=== PATIENT | male | born 1930 | race Caucasian/White ===

== ENCOUNTER 2021-09-16 08:53 | Inpatient (IN) | payer MEDICARE, OTHER ==
[~2021-09-16] VITALS: Ht 162.6 cm; Wt 72.6 kg
[2021-09-16 09:04] VITALS: BP 141/80
[2021-09-16] MEDS ORDERED: LEVO-T50 MCG PO (09:11)
[2021-09-16] MEDS ORDERED: PROSCAR 5MG TABL5 M1 PO (09:11)
--- NOTE | 2021-09-16 09:32 | EKG ---
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: : 1930 Requested By: Norm Ivey Order Number: [id number] MD: Riky Bianchi Measurements Intervals [place] Rate: 99 P: [place]: QRS: -26 QRSD: 101 T: 134 QT: 364 QTc: 468 Interpretive Statements Atrial fibrillation Ventricular premature complex Abnormal R-wave progression, 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
[2021-09-16 09:46] LABS: ABSOLUTE EOSINOPHILS 0.1 thou/uL (0.0-0.7); ABSOLUTE LYMPHOCYTES 1.1 thou/uL (0.8-5.3); ABSOLUTE MONOCYTES 1.3 thou/uL (0.0-1.2); ABSOLUTE NEUTROPHILS 7.8 thou/uL (1.6-8.1); BASOPHILS 0.3 %; HEMATOCRIT 39.1 % (42.0-52.0); HEMOGLOBIN 13.1 gm/dL (14.0-18.0); LYMPHOCYTES 10.8 %; MCH 30.6 pg (26.0-34.0); MCHC 33.6 g/dL (28.0-37.0); MONOCYTES 12.6 %; MPV 7.7 fl. (7.2-11.1); NUCLEATED RBCS 0 /100WBC; PLATELET COUNT* 339 thou/uL (150-400); POLYS 75.3 %; RDW-CV 14.2 % (10.5-14.5); WBC 10.3 thou/uL (4.0-11.0)
[2021-09-16 09:59] LABS: CALCIUM 8.8 mg/dL (8.5-10.1); CREATININE 1.1 mg/dL (0.6-1.3); POTASSIUM 3.6 mmol/L (3.5-5.1)
[2021-09-16 10:10] LABS: ALBUMIN 2.8 g/dL (3.4-5.0); TOTAL BILIRUBIN 0.7 mg/dL (<0.1-1.0); TOTAL PROTEIN 6.9 g/dL (6.4-8.2)
[2021-09-16 12:53] LABS: CHOLESTEROL 151 mg/dL (<200); HDL CHOLESTEROL 56 mg/dL (>40); LDL CHOLESTEROL 84 mg/dL (<100); TC:HDL 2.7 Ratio (Not establshd); TRIGLYCERIDE 56 mg/dL (<150); VLDL 11 mg/dL (<40)
[2021-09-16 12:57] LABS: SERUM ASSESSMENT Moderate Lipemia
--- NOTE | 2021-09-16 14:06 | 2DMMODE ---
[place] [address] 2 D/M-MODE ECHOCARDIOGRAM Name: ALESIA PADGETT Room: [place] [address] ADM IN [place].Alisha.#: [id number] Admission: 09/16/21 Attend Phys: Moraima Dunn Discharge: Date of : [birth year] Date of Service: 09/16/21 1405 Report #: [id number] THIS REPORT FOR: cc: ARTURO SIMPSON MD, CHADWICK MD Holkins,Riky Rey MD [facility] ~ APPROVED REPORT Study performed: 09/16/2021 12:34:49 EXAM: Comprehensive 2D, Doppler, and color-flow Echocardiogram Patient Location: In-Patient Room #: er Status: routine BSA: 1.82 HR: 80 bpm BP: 133/85 mmHg Rhythm: NSR Other Information Study Quality: Good Indications Dyspnea 2D Dimensions IVSd: 10.27 (7-11mm) LVOT Diam: 20.43 (18-24mm) LVDd: 46.26 mm PWd: 9.52 (7-11mm) LVDs: 34.76 (25-40mm) Aortic Root: 32.47 mm Volumes Left Atrial Volume (Systole) LA ESV Index: 45.90 mL/m2 Aortic Valve AoV Peak Mic.: 1.60 m/s AO Peak Gr.: 10.25 mmHg LVOT Max P.44 mmHg AO Mean Gr.: 6.13 mmHg LVOT Mean P.73 mmHg LVOT Max V: 0.93 m/s AO V2 VTI: 27.90 cm LVOT Mean V: 0.61 m/s WILFR[place]O (VTI): 1.84 cm2 LVOT V1 VTI: 15.67 cm AI [place]: 1.79 m/s2 [place] [address] 2 D/M-MODE ECHOCARDIOGRAM Name: ALESIA PADGETT Room: [place] [address] ADM IN .R.#: [id number] Admission: 09/16/21 Attend Phys: Moraima Dunn Discharge: Date of : [birth year] Date of Service: 09/16/21 1405 Report #: [id number] AI PHT: 603.50 ms TDI Lateral E' Mic.: 0.13 m/s Pulmonary Valve PV Peak Mic.: 0.80 m/s PV Peak Gr.: 2.56 mmHg Left Ventricle The left ventricle is normal size. There is normal LV segmental wall motion. There is normal left ventricular wall thickness. Left ventricular systolic function is borderline. LVEF is 50-55%. This study is not technically sufficient to allow evaluation of the LV diastolic function due to atrial fibrillation. Right Ventricle Right ventricle is borderline dilated. The right ventricular systolic function is normal. Atria Left atrium is moderately dilated. Right atrium is mildly dilated. Aortic Valve Moderate aortic valve sclerosis. Mild aortic regurgitation. Mild aortic stenosis. Mitral Valve Moderate mitral annular calcification. Mild mitral regurgitation. No evidence of mitral valve stenosis. Tricuspid Valve The tricuspid valve is normal in structure. Unable to assess PA pressure. Trace tricuspid regurgitation. Pulmonic Valve The pulmonary valve is normal in structure. Trace pulmonic regurgitation. Great Vessels The aortic root is normal in size. IVC is normal in size and collapses >50% with inspiration. Pericardium There [place] [address] 2 D/M-MODE ECHOCARDIOGRAM Name: ALESIA PADGETT Room: [place] [address] ADM IN R.#: [id number] Admission: 09/16/21 Attend Phys: Moraima Dunn Discharge: Date of : [birth year] Date of Service: 09/16/21 1405 Report #: [id number] <Conclusion> The left ventricle is normal size. There is normal left ventricular wall thickness. Left ventricular systolic function is borderline. LVEF is 50-55%. This study is not technically sufficient to allow evaluation of the LV diastolic function due to atrial fibrillation. Right ventricle is borderline dilated. Left atrium is moderately dilated. Right atrium is mildly dilated. Moderate aortic valve sclerosis. Mild aortic regurgitation. Mild aortic stenosis. Moderate mitral annular calcification. Mild mitral regurgitation. No evidence of mitral valve stenosis. The tricuspid valve is normal in structure. IVC is normal in size and collapses >50% with inspiration. There is no pericardial effusion. There is normal LV segmental wall motion. <ELECTRONICALLY SIGNED> By: Riky Bianchi MD, [facility] 09/16/21 1405 1405 140 Riky Bianchi MD, FACC /INF
[2021-09-16 15:59] VITALS: BP 140/66
[2021-09-16 20:00] VITALS: BP 126/58
[2021-09-17 00:05] VITALS: BP 137/68
[2021-09-17 04:00] VITALS: BP 140/74
[2021-09-17 05:10] LABS: CALCIUM 8.3 mg/dL (8.5-10.1); CREATININE 1.1 mg/dL (0.6-1.3); POTASSIUM 3.5 mmol/L (3.5-5.1)
[2021-09-17 08:00] VITALS: BP 145/63
[2021-09-17 12:35] VITALS: BP 138/52
[2021-09-17 16:15] VITALS: BP 143/61
[2021-09-17 20:15] VITALS: BP 116/53
[2021-09-18 00:19] VITALS: BP 112/65
[2021-09-18 04:00] VITALS: BP 140/62
[2021-09-18 08:00] VITALS: BP 134/52
--- NOTE | 2021-09-18 08:15 | CON ---
[address] [address] CONSULTATION Name: ALESIA PADGETT Room: [address] ADM IN M.R.#: [id number] Admission: 09/16/21 Attend Phys: [place] Knapp Discharge: Date of : [birth year] Report #: [id number] THIS REPORT FOR: cc: ARTURO SIMPSON MD, CHADWICK MD Biggs, F. Douglas MD [facility] ~ DATE OF CONSULTATION: 09/17/2021 CARDIOLOGY FOLLOWUP VISIT NOTE HISTORY OF PRESENT ILLNESS: This morning the patient feels well and has really only complaint in his left leg. He says he has had left leg pain that keeps him from moving his left leg very much for almost a year. Apparently that has not been investigated. At least he tells me it has not been investigated. He does see a neurologist named, Dr. Crenshaw for his back issues. Today, he is in normal sinus rhythm on the monitor. He is not having any chest pain or shortness of breath or other cardiac complaints. He does not have orthopnea or PND. He does not have any edema. PHYSICAL EXAMINATION: VITAL SIGNS: His pulse is 62, blood pressure 140/70, respirations 18, temperature 36.7. HEENT: His head is atraumatic. NECK: There is no jugular venous distention or hepatojugular reflux. LUNGS: Clear to auscultation and percussion, but there are decreased breath sounds in both bases. HEART: Revealed normal first and second heart sound. The aortic second sound is easily heard. There is a 1-2/6 systolic ejection murmur heard in the aortic area. The rhythm is regular. The rate is approximately 62. ABDOMEN: Soft, flat, nontender. There are no palpable masses, no organomegaly. There is no hepatojugular reflux. EXTREMITIES: Reveal no cyanosis, clubbing or edema. His left leg is not swollen or tender. There is no redness, it is a very normal appearing left leg. It does hurt whenever I try to move it, however. He says it hurts all the way up from his lower leg to his thigh. IMPRESSION: 1. Atrial fibrillation, now in normal sinus rhythm. 2. Mild aortic stenosis. 3. Congestive heart failure that is cleared. 4. Probable diastolic dysfunction. RECOMMENDATIONS: I would stop his metoprolol and [place] [address] CONSULTATION Name: ALESIA PADGETT Room: [address] IN [facility]#: [id number] Admission: 09/16/21 Attend Phys: [place] Kanpp Discharge: Date of : [birth year] Report #: [id number] should have his potassium stopped after today's dose. I would recheck an EKG and I would start him on sotalol. <ELECTRONICALLY SIGNED> By: Radha Villalba MD, [facility] 09/18/21 0815 0722 0814F. Johan Villalba MD, [facility] /nt
[2021-09-18 12:14] VITALS: BP 91/35
[2021-09-18 15:53] VITALS: BP 119/57
[2021-09-18 20:43] VITALS: BP 114/51
[2021-09-19] VITALS: BP 119/49
[2021-09-19 04:00] VITALS: BP 120/78
[2021-09-19 08:00] VITALS: BP 124/59
--- NOTE | 2021-09-19 10:24 | EKG ---
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 : 1930 Requested By: Radha Villalba Order Number: [id number] Reading MD: Derrick Escudero Measurements Intervals [place] Rate: 64 P: 20 FL: 174 QRS: -22 QRSD: 91 T: -28 QT: 516 QTc: 533 Interpretive Statements Sinus rhythm Atrial premature complex Probable LVH with secondary repol abnrm Inferior infarct, old Prolonged QT interval Compared to ECG 09/16/2021 09:08:48 Atrial premature complex(es) now present Prolonged QT interval now present Atrial fibrillation no longer present Ventricular premature complex(es) no longer present Myocardial infarct finding still present Electronically Signed On 09-19-2021 10:23:49 ADMINISTRATIVE SECRETARY by Derrick Escudero [email or web address] <ELECTRONICALLY SIGNED> By: Derrick Escudero MD, [facility] 09/19/21 1023 1 1 Derrick Escudero MD, [facility] /EPI
--- NOTE | 2021-09-19 10:25 | EKG ---
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 : 1930 Requested By: Radha Villalba Order Number: [id number] Reading MD: Derrick Escudero Measurements Intervals [place] Rate: 53 P: 0 DC: 50 QRS: -20 QRSD: 100 T: 126 QT: 459 QTc: 431 Interpretive Statements Sinus rhythm with pac's Short DC interval LVH with secondary repolarization abnormality Compared to ECG 09/17/2021 08:32:39 Prolonged QT interval no longer present Electronically Signed On 09-19-2021 10:25:09 SOCIAL WORK NURSE by Derrick Escudero [email or web address] <ELECTRONICALLY SIGNED> By: Derrick Escudero MD, [facility] 09/19/21 1025 4 4 Derrick Escudero MD, [facility] /EPI
[2021-09-19 12:00] VITALS: BP 100/34
[2021-09-19] MEDS ORDERED: TRAMADOL 50 MG50 MG PO (12:19)
[2021-09-19] MEDS ORDERED: CEFDINIR300 MG PO (12:19)
[2021-09-19] MEDS ORDERED: VITAMIN D325 MC2 PO (12:19)
[2021-09-19] MEDS ORDERED: MEGESTROL400 MG/11 PO (12:19)
[2021-09-19] MEDS ORDERED: GABAPENTIN 100100 MG PO (12:19)
[2021-09-19] MEDS ORDERED: SORINE 80 MG TA80 M1 PO (12:19)
[2021-09-19] MEDS ORDERED: ELIQUIS5 MG PO (12:19)
[2021-09-19 16:00] VITALS: BP 102/47
--- NOTE | 2021-09-19 18:17 | EKG ---
[place] [address] ELECTROCARDIOGRAM REPORT Name: ALESIA PADGETT Room: [address] ADM IN M.R.#: [id number] Admission: 09/16/21 Attend Phys: Moraima Dunn Discharge: Date of : [birth year] Date of Service: 09/19/2123 Report #: [id number] THIS REPORT FOR: //name// [facility] Test Date: 2021-09-19 Test Time: 09:23:44 Pat Name: ALESIA PADGETT Department: Room: [address] Gender: M Fish Rod Maker: XAVI : 1930 Requested By: Radha Villalba Order Number: [id number] Reading MD: Derrick Escudero Measurements Intervals [place] Rate: 66 P: 20 SD: 175 QRS: -25 QRSD: 93 T: 133 QT: 405 QTc: 425 Interpretive Statements Sinus rhythm LVH with secondary repolarization abnormality Inferior infarct, old Compared to ECG 09/18/2021 08:15:07 pac's no longer noted Short SD interval no longer present Electronically Signed On 09-19-2021 18:16:59 BASKET TURNER by Derrick Escudero [email or web address] <ELECTRONICALLY SIGNED> By: Derrick Escudero MD, [facility] 09/19/21 1816 2 2 Derrick Escudero MD, FAC /EPI
[2021-09-19 21:19] VITALS: BP 129/55
[2021-09-20 02:08] VITALS: BP 125/46
[2021-09-20 05:34] VITALS: BP 120/45
--- NOTE | 2021-09-20 07:59 | CON ---
[address] [address] CONSULTATION Name: ALESIA PADGETT Room: [address] ADM IN M.R.#: [id number] Admission: 09/16/21 Attend Phys: [place] Knapp Discharge: Date of : [birth year] Report #: [id number] THIS REPORT FOR: cc: ARTURO SIMPSON MD, CHADWICK MD Biggs, F. Douglas MD [facility] ~ DATE OF CONSULTATION: 09/18/2021 CARDIOLOGY HOSPITAL FOLLOWUP VISIT HISTORY OF PRESENT ILLNESS: The patient feels well today. He said he slept very well last night. He says he feels better this morning than he has felt in some time. He says the best night's sleep, he has had in some time. He does not have any shortness of breath, dyspnea on exertion, chest pain, angina. He has not had any syncope or near syncope. He looks well, feels well and seems to be doing well. PHYSICAL EXAMINATION: VITAL SIGNS: Temperature 36.7, pulse 51, respirations 20, blood pressure 140/62. NECK: There was no jugular venous distention or hepatojugular reflux. LUNGS: Clear to auscultation and percussion. HEART: Revealed normal first and second heart sound. There is soft S4. There is no S3. There was 1-2/6 systolic ejection murmur heard in the aortic area. The aortic second sound was easily heard. There were no other murmurs, rubs, thrills, heaves or gallops. Rhythm was regular and the rate was approximately 60 when I examined him. ABDOMEN: Soft, flat, nontender, no palpable masses, no organomegaly. EXTREMITIES: Reveal no cyanosis, clubbing or edema. LABORATORY DATA: His EKG from yesterday showed normal sinus rhythm. There is 1 atrial premature beat. There is probable LVH for secondary repolarization abnormality. There is a possible old inferior infarct, although there was a clear cut R waves in 2 and a very small R-wave in 3. I suspect he has not had an inferior infarct in the past. The QT interval was prolonged at 516 with a QTc of 533. This EKG was before he got any sotalol. His EKG today shows sinus bradycardia, heart rate was 55. There was left ventricular hypertrophy. Again, a possible old inferior infarct. The QT was measured by the EKG reader as 451 with a QTc of 432. IMPRESSION: 1. Atrial fibrillation, now in normal sinus rhythm. 2. Aortic stenosis that is mild. 3. Mild congestive heart failure, likely diastolic heart [place] [address] CONSULTATION Name: ALESIA PADGETT Room: [address] IN M.R.#: [id number] Admission: 09/16/21 Attend Phys: [place] Knapp Discharge: Date of : [birth year] Report #: [id number] 4. Coronary artery disease. 5. Status post coronary artery bypass graft surgery. RECOMMENDATIONS: I am going to reduce his sotalol to 40 mg b.i.d. given his age. Fortunately, his creatinine clearance is reasonable. His BUN and creatinine are both within normal limits. I suspect given his age; however, he might become toxic on the 80 mg twice a day. <ELECTRONICALLY SIGNED> By: Radha Villalba MD, FACC 09/20/21 0759 0728 0832F. Johan Villalba MD, FACC /nt
[2021-09-20 08:00] VITALS: BP 104/47
[2021-09-20 12:00] VITALS: BP 104/50
[2021-09-20 16:00] VITALS: BP 110/48
[2021-09-20 18:23] VITALS: BP 110/48
--- NOTE | 2021-09-21 10:17 | EKG ---
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 : 1930 Requested By: Radha Villalba Order Number: [id number] Reading MD: Derrick Escudero Measurements Intervals [place] Rate: 60 P: 21 ID: 180 QRS: -19 QRSD: 102 T: 143 QT: 426 QTc: 426 Interpretive Statements Sinus rhythm Abnormal R-wave progression, 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
== END 2021-09-20 18:56 | disposition home or self-care (01) | DRG 602 ==
LOC: M.ERS 08:53 → M.TBA-ER 10:59 → M.2W 10:59
PROVIDERS: Family Medicine; Registered Nurse; ADMIT Internal Medicine; ATTEND Internal Medicine
DX: L03.116 Cellulitis of left lower limb (principal); I50.31 Acute diastolic (congestive) heart failure; E43 Unspecified severe protein-calorie malnutrition; Z68.27 Body mass index [BMI] 27.0-27.9, adult; I48.91 Unspecified atrial fibrillation; Z79.01 Long term (current) use of anticoagulants; N40.0 Benign prostatic hyperplasia without lower urinary tract symptoms; E03.9 Hypothyroidism, unspecified; I25.10 Atherosclerotic heart disease of native coronary artery without angina pectoris; M54.10 Radiculopathy, site unspecified; I35.0 Nonrheumatic aortic (valve) stenosis; Z20.822 Contact with and (suspected) exposure to COVID-19; M54.30 Sciatica, unspecified side; Z95.1 Presence of aortocoronary bypass graft

== ENCOUNTER 2021-09-20 17:48 | Inpatient (IN) | payer MEDICARE, OTHER ==
[~2021-09-20] VITALS: Ht 170.2 cm; Wt 70.1 kg
[~2021-09-20 17:48] MED LIST: CEFDINIR300 MG PO; ELIQUIS5 MG PO; GABAPENTIN 100100 MG PO; LEVO-T50 MCG PO; MEGESTROL400 MG/11 PO; PROSCAR 5MG TABL5 M1 PO; SORINE 80 MG TA80 M1 PO; TRAMADOL 50 MG50 MG PO; VITAMIN D325 MC2 PO
[2021-09-21 04:35] LABS: HEMATOCRIT 36.4 % (42.0-52.0); HEMOGLOBIN 12.1 gm/dL (14.0-18.0); MCH 30.5 pg (26.0-34.0); MCHC 33.2 g/dL (28.0-37.0); MCV 91.7 fL (80.0-100.0); MPV 7.8 fl. (7.2-11.1); RBC 3.96 mil/uL (4.50-6.00); RDW-CV 14.1 % (10.5-14.5); WBC 12.1 thou/uL (4.0-11.0)
--- NOTE | 2021-09-21 05:11 | NUR ---
PT ARRIVED BY BED FROM TELEMETRY AT 1900. ALERT AND ORIENTED X4, POLITE AND COOPERATIVE WITH CARES. ADMISSION DATABASES COMPLETED. PT HAS CHRONIC INTERMITTENT PAIN IN HIS BACK AND LEGS RATED 10/10. PER PT GABAPENTIN HELPS WITH HIS PAIN, TRAMADOL DOES NOT. PT USED BEDPAN FOR LARGE, FORMED STOOL. PER PT HE IS INCONTINENT OF URINE. PT USED URINAL OVERNIGHT TO VOID, HOLDING IT IN PLACE. EMPTIED NO LESS THAN 10 TIMES THIS SHIFT. PT UNABLE TO REST WORRYING HE WOULD WET THE BED. USES CALL LIGHT APPROPRIATELY. CALL LIGHT IN REACH, BED ALARM ON FOR SAFETY. HOURLY ROUNDING IN PROGRESS, WILL CONTINUE TO MONITOR.
[2021-09-21 05:15] LABS: CREATININE 1.1 mg/dL (0.6-1.3); POTASSIUM 4.9 mmol/L (3.5-5.1)
[2021-09-21 07:30] VITALS: BP 139/63
--- NOTE | 2021-09-21 09:45 | NUR ---
INITIAL ASSESSMENT: PATIENT ADMITTED TO THE [facility] ON 09/20/21 WITH A DIAGNOSIS OF CARDIAC DEBILITY. CM CONTACTED THE PT'S SPOUSE TO COMPLETE CM ASSESSMENT. PT'S SPOUSE INFORMS THAT PRIOR TO ADMIT THE PT WAS INDEPENDENT WITH ADL'S, BUT MOST RECENTLY HAD DIFFICULTY WITH LB DRESSING D/T PAIN IN LEFT LEG AND SHE ASSISTED WITH THAT. PT USED A WALKER FOR MOBILITY AT BASELINE, BUT ALSO OWNS A CANE. PT HAS PAST HS OF HH WITH [facility]. PT HAS 0 HX OF SNF. PT'S HOME HAS 0 STAIRS, AND ONLY THE 'STEP-IN' FROM THE OUTSIDE TO THE FRONT ENTRY. CM ORIENTED THE PT'S SPOUSE TO THE [facility] AND PROCESSES, RESIDENTS RIGHTS INFO, TEAM CONFRENCE, AND TO THE ROLE OF CM. CM WILL REMAIN AAILABLE TO ASSIST AND FOLLOW NEEDED.
--- NOTE | 2021-09-21 17:41 | NUR ---
AM ASSESSMENT AND VITAL SIGNS COMPLETED DOCUMENTED. PT COMPLETED PT, OT AND ST EVALS TODAY. PT CONTINUES TO C/O LEFT LEG PAIN AND WEAKNESS. DR MOURA IS PLANNING TO DO A PAIN INTERVENTION ON SUNDAY SO PT WILL NEED TO STOP TAKING APIXABAN [address] MIR WILL ADDRESS BRIDGING WITH LOVENOX. PT HAS BEEN INCONTINENT OF BOWEL AND BLADDER THIS SHIFT. FALL PRECAUTIONS AND HOURLY ROUNDING CONTINUE.
[2021-09-21 19:49] VITALS: BP 143/49
--- NOTE | 2021-09-22 05:18 | NUR ---
ASSUMED PT CARE AT 1930. ALERT AND ORIENTED X4, POLITE AND COOPERATIVE WITH CARES. PT IS EXTREMELY TIRED FROM THERAPY. C/O BACK AND LEFT LEG PAIN STATES THAT GABAPENTIN HELPS WITH PAIN BUT TRAMADOL DOES NOT. SLEPT WELL OVERNIGHT. VOIDED PER URINAL. NO STOOL THIS SHIFT. CALL LIGHT IN REACH, BED ALARM ON FOR SAFETY. HOURLY ROUNDING IN PROGRESS, WILL CONTINUE TO MONITOR.
[2021-09-22 07:52] VITALS: BP 133/56
[2021-09-22 19:00] VITALS: BP 113/50
--- NOTE | 2021-09-23 05:06 | NUR ---
ASSUMED CARE AT 1920. ALERT AND ORIENTED. PLEASANT. TRAMADOL GIVEN FOR LLE PAIN. INCONTINENCE. DID USE URINAL WELL. SLEPT OFF AND ON. CALL LIGHT IN REACH AND BED ALARM ON.
[2021-09-23 07:42] VITALS: BP 135/64
--- NOTE | 2021-09-23 14:16 | NUR ---
TEAM CONFRENCE MEETING HELD THIS WEEK. PLAN TO RE-TEAM AND HAVE PT REMAIN ON THE UNIT FOR ANOTHER WEEK TO CONTINUE THERAPIES. CM WILL REMAIN AVAILABLE TO ASSIST AND FOLLOW NEEDED.
[2021-09-23 14:24] LABS: ABSOLUTE BASOPHILS 0.1 thou/uL (0.0-0.2); ABSOLUTE EOSINOPHILS 0.5 thou/uL (0.0-0.7); ABSOLUTE LYMPHOCYTES 2.1 thou/uL (0.8-5.3); ABSOLUTE MONOCYTES 1.3 thou/uL (0.0-1.2); ABSOLUTE NEUTROPHILS 8.6 thou/uL (1.6-8.1); BASOPHILS 0.7 %; EOSINOPHILS 4.3 %; HEMATOCRIT 35.3 % (42.0-52.0); HEMOGLOBIN 11.7 gm/dL (14.0-18.0); LYMPHOCYTES 16.4 %; MCH 30.2 pg (26.0-34.0); MCHC 33.1 g/dL (28.0-37.0); MCV 91.2 fL (80.0-100.0); MONOCYTES 10.5 %; MPV 7.1 fl. (7.2-11.1); NUCLEATED RBCS 0 /100WBC; POLYS 68.1 %; RBC 3.87 mil/uL (4.50-6.00); RDW-CV 14.1 % (10.5-14.5); WBC 12.6 thou/uL (4.0-11.0)
[2021-09-23 14:25] LABS: PLATELET COUNT* 524 thou/uL (150-400)
[2021-09-23 14:37] LABS: ALBUMIN 2.3 g/dL (3.4-5.0); CALCIUM 8.6 mg/dL (8.5-10.1); CREATININE 1.4 mg/dL (0.6-1.3); POTASSIUM 5.3 mmol/L (3.5-5.1); TOTAL BILIRUBIN 0.4 mg/dL (<0.1-1.0); TOTAL PROTEIN 6.9 g/dL (6.4-8.2)
[2021-09-23 15:34] LABS: ESR (SEDRATE) 92 mm/hr (0-20)
[2021-09-23 19:23] VITALS: BP 119/66
--- NOTE | 2021-09-23 23:46 | NUR ---
ASSUMED CARE AT 1915. PATIENT RESTING IN BED. TAKES PILLS WHOLE WITH WATER. VOIDS PER URINAL. TURNS SELF. DENIES PAIN. NO C/O PAIN. HOURLY ROUNDS CONTINUE. BED ALARM ON. CALL LITE IN REACH.
--- NOTE | 2021-09-24 06:19 | NUR ---
SLEPT OFF AND ON. INCONTINENT OF ONE BOWEL MOVEMENT. CONTINENT OF URINE PER URINAL. NO C/O PAIN. TURNED Q2H. HOURLY ROUNDS CONTINUE. BED ALARM ON. CALL LITE IN REACH.
[2021-09-24 07:45] VITALS: BP 110/40
--- NOTE | 2021-09-24 16:58 | NUR ---
ALERT AND ORIENTED X4 WITH PERIODS OF FORGETFULNESS AT TIMES. UP WITH 1-2 ASSIST, GAIT BELT AND WALKER. USED PO PAIN MEDICATION AND PAIN PATCH TO HELP WITH BACK AND LEFT LEG PAIN. IV STARTED WITHOUT DIFFICULTY IN LEFT ARM. IVF INFUSING WITHOUT DIFFICULTY. USES URINAL FOR VOIDING. INCONTINENT OF SOFT STOOLS X3 TODAY. TAKES PILLS WITHOUT DIFFICULTY. USES CALL LIGHT FOR ASSIST. FALL PRECAUTIONS IN PLACE.
[2021-09-24 19:30] VITALS: BP 97/50
--- NOTE | 2021-09-25 05:44 | NUR ---
ASSUMED PT CARE AT 1930. ALERT AND ORIENTED X4, POLITE AND COOPERATIVE WITH CARES. PIV INFUSING TO LEFT FOREARM WITHOUT DIFFICULTY. VOIDED PER URINAL OVERNIGHT. TAKES PILLS WHOLE WITH WATER. LEGS ELEVATED WITH PILLOWS PER PT REQUEST. TURNS ASSISTED Q2. CALL LIGHT IN REACH, BED ALARM ON FOR SAFETY. HOURLY ROUNDING IN PROGRESS, WILL CONTINUE TO MONITOR.
[2021-09-25 07:11] VITALS: BP 144/54
--- NOTE | 2021-09-25 17:49 | NUR ---
ALERT AND ORIENTED X4 WITH PERIODS OF FORGETFULNESS. UP WITH 1 ASSIST, GAIT BELT AND WALKER TO BEDSIDE COMMODE. INCONTINENT OF BOWEL AND BLADDER AT TIMES. FREQUENTLY USES URINAL. TAKES PILLS WITHOUT DIFFICULTY. TAKES PO PAIN MEDICATION AND USES PAIN PATCH TO HELP WITH BACK AND LEFT LEG PAIN. USES CALL LIGHT FOR ASSIST. FALL PRECAUTIONS IN PLACE.
[2021-09-25 19:31] VITALS: BP 124/53
--- NOTE | 2021-09-25 20:10 | NUR ---
AWAKENEND FOR MED PASS AND REASSESSMENT. VOIDS YELLOW URINE PER URINAL. CALL LIGHT WITHIN REACH.
--- NOTE | 2021-09-26 05:26 | NUR ---
RESTED ON/OFF. VOIDS PER URINAL FREQUENTLY. PAIN MEDICINE GIVEN AT 0105 FOR COMPLAINT OF GENERALIZED PAIN WITH RELIEF. HOURLY ROUNDING IN PROGRESS.
[2021-09-26 05:29] LABS: APTT 33.8 Seconds (25.0-31.3); INR 1.1; PROTIME 11.2 Seconds (9.20-11.50)
[2021-09-26 05:31] LABS: ALBUMIN 1.9 g/dL (3.4-5.0); CALCIUM 7.8 mg/dL (8.5-10.1); CREATININE 1.2 mg/dL (0.6-1.3); MAGNESIUM 1.9 mg/dL (1.8-2.4); POTASSIUM 4.5 mmol/L (3.5-5.1); TOTAL BILIRUBIN 0.3 mg/dL (<0.1-1.0); TOTAL PROTEIN 5.8 g/dL (6.4-8.2)
[2021-09-26 05:37] LABS: HEMOGLOBIN 10.4 gm/dL (14.0-18.0); MCH 30.3 pg (26.0-34.0); MCHC 33.6 g/dL (28.0-37.0); MCV 90.3 fL (80.0-100.0); MPV 7.3 fl. (7.2-11.1); RBC 3.44 mil/uL (4.50-6.00); RDW-CV 14.3 % (10.5-14.5); WBC 11.5 thou/uL (4.0-11.0)
[2021-09-26 07:30] VITALS: BP 130/46
--- NOTE | 2021-09-26 13:32 | NUR ---
recieved lumbar epidural steroid injection 1145 in pain clinic.
[2021-09-26 20:00] VITALS: BP 115/49
--- NOTE | 2021-09-27 05:34 | NUR ---
ASSUMED PT CARE AT 1930. PT ALERT AND ORIENTED X4, POLITE AND COOPERATIVE WITH CARES. PT USES URINAL TO VOID AND SOMETIMES SPILLS SAME ON PAD. PT SLEPT MORE DEEPLY THAN USUAL, STATED HE WAS TIRED FROM THERAPY. SITE OF LUMBAR EPIDURAL STEROID INJECTION DRY AND INTACT, NO BLEEDING OR DISCHARGE NOTED. LOVENOX HELD PER DR. MOURA'S PROCEDURE NOTE. PT STATED HE WAS ABLE TO ALLEVIATE PAIN WHEN HIS LEG WAS ELEVATED ON PILLOW. TAKES PILLS WITH WATER WITHOUT DIFFICULTY. CALL LIGHT IN REACH, BED ALARM ON FOR SAFETY. HOURLY ROUNDING IN PROGRESS, WILL CONTINUE TO MONITOR.
[2021-09-27 07:41] VITALS: BP 143/51
--- NOTE | 2021-09-27 11:07 | NUR ---
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 Please obtain/record pt's current wt.
--- NOTE | 2021-09-27 17:28 | NUR ---
PATIENT RESTING IN BED, EATING DINNER. DAUGHTER VISITED EARLIER. LUMBAR EPIDURAL STERIOD INJECTION SITE WITHOUT DRAINAGE OR REDNESS. BED IN LOW/LOCKED POSITION. BED ALARM ON. CALL LIGHT WITHIN REACH. ALL QUESTIONS AND CONCERNS ADDRESSED.
[2021-09-27 19:30] VITALS: BP 122/47
--- NOTE | 2021-09-27 19:50 | NUR ---
SITTING UP IN BED. STATES PAIN IN LEGS AT A "5" BUT DOESN'T WANT TO TAKE PAIN MEDICATION AT THIS TIME. ENCOURAGED PATIENT TO NOT LET PAIN GET TOO BAD BEFORE TAKING MEDICATION. ASSISTED PATIENT WITH REPOSITIONING. SET PATIENT UP FOR BRUSHING HIS TEETH. KEEPS URINAL BETWEEN LEGS AND VOIDS CLEAR/YELLOW URINE. CALL LIGHT WITHIN REACH.
[2021-09-28 05:01] LABS: HEMATOCRIT 30.7 % (42.0-52.0); HEMOGLOBIN 10.5 gm/dL (14.0-18.0); MCH 30.4 pg (26.0-34.0); MCHC 34.3 g/dL (28.0-37.0); MCV 88.6 fL (80.0-100.0); MPV 6.9 fl. (7.2-11.1); RBC 3.47 mil/uL (4.50-6.00); RDW-CV 14.1 % (10.5-14.5); WBC 15.2 thou/uL (4.0-11.0)
[2021-09-28 05:22] LABS: CALCIUM 8.4 mg/dL (8.5-10.1); CREATININE 1.1 mg/dL (0.6-1.3); POTASSIUM 4.7 mmol/L (3.5-5.1)
--- NOTE | 2021-09-28 05:29 | NUR ---
RESTED ON/OFF. NO FURTHER COMPLAINT OF PAIN. HOURLY ROUNDING IN PROGRESS.
[2021-09-28 08:02] VITALS: BP 130/53
--- NOTE | 2021-09-28 15:49 | NUR ---
TEAM CONFRENCE MEETING HELD TODAY. PLAN TO ARRANGE FAMILY TRAINING FOR SUNDAY (10/04/21 AT 1300), AND D/C PT HOME WITH HH SUNDAY (10/05/21) AFTER TEAM MEETING. PT AND SPOUSE IN AGREEMENT WITH PLAN, BUT PT'S SPOUSE ALSO APRREHENSIVE ABOUT PT'S MOBILITY. CM INFORMED THERAPIST AND PHYSICIAN OF PT'S SPOUSES CONCERNS. PT PROGRESSING WELL TOWARDS GOALS BUT BARRIERS ARE PT'S MEMORY, REASONING, BALANCE, SAFETY AWARENESS, AND SHUFFLING GAIT. CM WILL REMAIN AVAILABLE TO ASSIST AND FOLLOW NEEDED.
[2021-09-28 19:33] VITALS: BP 105/45
--- NOTE | 2021-09-28 20:10 | NUR ---
AWAKENEND FOR REASSESSMENT AND MEDICATION PASS. PAIN MEDICINE GIVEN FOR COMPLAINT OF PAIN IN FEET AND BACK. KEEPS URINAL BETWEEN HIS LEGS. VOIDS YELLOW URINE. CALL LIGHT WITHIN REACH.
--- NOTE | 2021-09-29 04:58 | NUR ---
RESTED SOUNDLY. NO FURTHER COMPLAINT OF PAIN. HOURLY ROUNDING IN PROGRESS.
[2021-09-29 07:30] VITALS: BP 120/48
--- NOTE | 2021-09-29 18:37 | NUR ---
AM ASSESSMENT AND VITAL SIGNS COMPLETED DOCUMENTED. PT CONTINUES TO WORK WITH PT, OT AND ST WITH GRADUAL PROGRESS. PAIN BLOCK EARLIER THIS WEEK HAS BEEN BENEFICIAL. FALL PRECAUTIONS AND HOURLY ROUNDING CONTINUE.
[2021-09-29 20:24] VITALS: BP 100/48
--- NOTE | 2021-09-30 04:40 | NUR ---
ASSUMED CARE AT 1930. PATIENT RESTING IN BED. EDUCATED ON NEED TO AVOID PROPPING URINAL IN PLACE TO PREVENT SKIN BREAKDOWN. PATIENT HAS BEEN USING URINAL INTERMITTENTLY. TERRENCE URINE. MOISTURE BARRIER APPLIED. ASSISTED WITH TURNS. TAKES PILLS WHOLE WITH WATER. HOURLY ROUNDS CONTINUE. BED ALARM ON. CALL LITE IN REACH.
[2021-09-30 07:31] VITALS: BP 121/43
[2021-09-30 09:32] LABS: HEMATOCRIT 36.5 % (42.0-52.0); HEMOGLOBIN 12.1 gm/dL (14.0-18.0); MCHC 33.2 g/dL (28.0-37.0); MCV 90.4 fL (80.0-100.0); MPV 7.2 fl. (7.2-11.1); RBC 4.04 mil/uL (4.50-6.00); RDW-CV 14.1 % (10.5-14.5); WBC 13.8 thou/uL (4.0-11.0)
[2021-09-30 09:47] LABS: CALCIUM 8.6 mg/dL (8.5-10.1); CREATININE 1.3 mg/dL (0.6-1.3); POTASSIUM 4.4 mmol/L (3.5-5.1)
--- NOTE | 2021-09-30 16:57 | NUR ---
PATIENT COMPLETED THERAPIES THIS SHIFT ORDERED. UP TO CHAIR THIS SHIFT. UP WITH ASSISTANCE; GAIT BELT AND WALKER. PATIENT REFUSED PRN TRAMADOL THIS SHIFT. REQUIP INCREASED PER DR. WITT FOR HS DOSE. GOOD APPETITE THIS SHIFT.
[2021-09-30 19:45] VITALS: BP 112/47
--- NOTE | 2021-10-01 05:30 | NUR ---
ASSUMED CARE AT 1920. ALERT AND ORIENTED. PLEASANT. DENIED ANY NEED FOR PAIN MEDS. USED URINAL. SLEPT OFF AND ON. CALL LIGHT IN REACH AND BED ALARM ON.
[2021-10-01 07:40] VITALS: BP 119/55
--- NOTE | 2021-10-01 16:24 | NUR ---
PATIENT DID NOT HAVE THERAPY THIS SHIFT. PATIENT UP TO CHAIR, GAIT BELT AND WALKER FOR AMBULATION. PATIENT AMBULATED WITH THIS NURSE TO THE GYM AND BACK. PATIENT ASSISTED WITH PUTTING ON BRIEF AND NEW PANTS. LIDOCAIN PATCH TO LEFT THIGH. PER DR. EDUAR YOUSIF TO [place], PATIENT HAS GOOD APPETITE. VOIDING PER URINAL, PATIENT IS INCONTINENT AT TIMES.
[2021-10-01 19:33] VITALS: BP 113/49
--- NOTE | 2021-10-02 05:29 | NUR ---
ASSUMED CARES AT 1920. ALERT AND ORIENTED. PLEASANT. HAD LEG DISCOMFORT BUT REFUSED PAIN MEDS. LEGS REPOSITIONED IN BED. USED URINAL BUT HAD INCONTINENCE WELL. SALINE LOCK TO LEFT FA UNABLE TO FLUSH AND SO WAS D/C'D. PT SLEPT MOST OF THE NIGHT. CALL LIGHT IN REACH AND BED ALARM ON.
[2021-10-02 08:15] VITALS: BP 133/63
[2021-10-02 08:31] LABS: HEMOGLOBIN 11.2 gm/dL (14.0-18.0); MCH 30.1 pg (26.0-34.0); MCHC 32.8 g/dL (28.0-37.0); MCV 91.6 fL (80.0-100.0); MPV 7.4 fl. (7.2-11.1); RBC 3.71 mil/uL (4.50-6.00); RDW-CV 14.4 % (10.5-14.5); WBC 13.4 thou/uL (4.0-11.0)
[2021-10-02 08:58] LABS: ALBUMIN 2.3 g/dL (3.4-5.0); CALCIUM 8.2 mg/dL (8.5-10.1); CREATININE 1.1 mg/dL (0.6-1.3); POTASSIUM 4.3 mmol/L (3.5-5.1); TOTAL BILIRUBIN 0.4 mg/dL (<0.1-1.0); TOTAL PROTEIN 6.1 g/dL (6.4-8.2)
--- NOTE | 2021-10-02 17:15 | NUR ---
PT UP TO CHAIR WITH GAIT BELT, WALKER AND MODERATE ASIST. UNSTEADY GAIT. DENIES NEED FOR PAIN MEDICATION. REFUSED LIDODERM PATCH. CALL LIGHT IN REACH. FALL PRECAUTIONS IN PLACE.
[2021-10-02 20:10] VITALS: BP 114/54
--- NOTE | 2021-10-03 04:28 | NUR ---
ASSUMED PT CARE AT 1930. PT ALERT AND ORIENTED X4, POLITE AND COOPERATIVE WITH CARES. PT SITTING ON COMMODE AT SHIFT CHANGE HAVING A BOWEL MOVEMENT. TRANSFERRED BACK TO BED WITH MODERATE ASSIST, GAIT BELT AND WALKER. PT VOIDED PER URINAL SEVERAL TIMES OVERNIGHT, INCONTINENT AT TIMES. DENIED PAIN. CALL LIGHT IN REACH, BED ALARM ON FOR SAFETY. HOURLY ROUNDING IN PROGRESS, WILL CONTINUE TO MONITOR.
[2021-10-03 07:44] VITALS: BP 120/49
--- NOTE | 2021-10-03 16:19 | NUR ---
PATIENT COMPLETED THERAPIES THIS SHIFT ORDERED. UP TO RECLINER. UP WITH ASSISTANCE; GAIT BELT AND WALKER. NO COMPLAINTS OF PAIN, LIDOCAINE PATCH IN PLACE TO LEFT HIP FOR THERAPY. DAIGHTER AT BEDSIDE TODAY. VOIDING PER URINAL, NO BM NOTED.
[2021-10-03 19:00] VITALS: BP 129/51
[2021-10-04 07:41] VITALS: BP 130/45
--- NOTE | 2021-10-04 16:36 | NUR ---
CM SPOKE TO THE PT AND HIS SPOUSE AT THE BEDSIDE TO DISCUSS ANY QUESTIONS OR CONCERNS THAT THEY MAY HAVE FOR THIS WEEK TEAM CONFRENCE MEETING. PT AND SPOUSE EXPRESS CONCERNS THAT PT 'IS NOT READY TO DSCHARGE HOME', BUT ALSO 'DON'T WANT THE PT TO GO TO SNF', AND PT'S SPOUSE ALSO EXPRESSED 'FEELING RUSHED BY THE DISCHARGE PROCESS;. CM TO INFORM THE TEAM OF THESE CONCERNS. CM WILL REMAIN AVAILABLE TO ASSIST AND FOLLOW NEEDED.
[2021-10-04 19:00] VITALS: BP 104/45
--- NOTE | 2021-10-05 05:08 | NUR ---
ASSUMED CARE OF PATIENT AT 1930. PATIENT STATES DIDN'T HAVE ANY PAIN ALL SHIFT AND SLEPT WELL. VOIDS FREQUENTLY PER URINAL. INCONTINENT X ONE. JOSHUA CARE GIVEN. CALL LIGHT WITHIN REACH. HOURLY ROUNDING IN PROGRESS.
[2021-10-05 06:28] LABS: HEMATOCRIT 38.2 % (42.0-52.0); HEMOGLOBIN 12.4 gm/dL (14.0-18.0); MCH 30.3 pg (26.0-34.0); MCHC 32.6 g/dL (28.0-37.0); MCV 93.1 fL (80.0-100.0); MPV 7.4 fl. (7.2-11.1); RBC 4.1 mil/uL (4.50-6.00); RDW-CV 14.8 % (10.5-14.5); WBC 9.9 thou/uL (4.0-11.0)
[2021-10-05 07:41] LABS: CALCIUM 8.5 mg/dL (8.5-10.1); CREATININE 1.2 mg/dL (0.6-1.3); POTASSIUM 4.5 mmol/L (3.5-5.1)
[2021-10-05 07:59] VITALS: BP 131/51
[2021-10-05] MEDS ORDERED: ELIQUIS5 MG PO (08:34)
[2021-10-05] MEDS ORDERED: LEVO-T50 MCG PO (08:34)
[2021-10-05] MEDS ORDERED: NEURONTIN 300M300 M2 PO (08:34)
[2021-10-05] MEDS ORDERED: REQUIP 1 MG TABL1 M1 PO (08:34)
[2021-10-05] MEDS ORDERED: LIDODERM1 EACH TOP (08:34)
[2021-10-05] MEDS ORDERED: TRAMADOL 50 MG50 MG PO (08:34)
[2021-10-05] MEDS ORDERED: PROSCAR 5MG TABL5 M1 PO (08:34)
[2021-10-05] MEDS ORDERED: SORINE 80 MG TA80 M1 PO (08:34)
--- NOTE | 2021-10-05 16:37 | NUR ---
PT WORKED WITH THERAPIES. UP WITH GAIT BELT, WALKER AND ASSIST X1. HERE AND RECEIVED SOME FAMILY TRAINING FOR DISCHARGE ON SUNDAY. INCONT OF B/B. JOSHUA CARE AND BRIEF CHANGED PRN. PODIETRY TRIMMED PT TOE NAILS. CALL LIGHT IN REACH. FALL PRECAUTIONS IN PLACE.
[2021-10-05 19:39] VITALS: BP 135/52
--- NOTE | 2021-10-06 05:12 | NUR ---
ASSUMED CARES AT 1920. ALERT AND ORIENTED. PLEASANT. C/O LEG PAIN. PAIN MEDS GIVEN. USED URINAL. SLEPT SOME OFF AND ON. CALL LIGHT IN REACH AND BED ALARM ON.
[2021-10-06 07:49] VITALS: BP 115/48
[2021-10-06 20:00] VITALS: BP 109/48
[2021-10-07 07:45] VITALS: BP 130/51
[2021-10-07 19:39] VITALS: BP 111/56
--- NOTE | 2021-10-08 04:49 | NUR ---
ASSUMED PT CARE AT 1930. PT ALERT AND ORIENTED X4, POLITE AND COOPERATIVE WITH CARES. ANTCIPATIGAMA VALIENTEARGE ON TUESDAY 10/10. PT SITTING UP IN RECLINER AT SHIFT CHANGE. TRANSFERRED TO BED WITH ASSIST OF ONE, GAIT BELT AND WALKER. PT C/O LEG PAIN, PRN PAIN MEDICATION TWICE THIS SHIFT. USED URINAL. SLEPT OFF AND ON. CALL LIGHT IN REACH, BED ALARM ON FOR SAFETY. HOURLY ROUNDING IN PROGRESS, WILL CONTINUE TO MONITOR.
[2021-10-08 07:30] VITALS: BP 129/44
--- NOTE | 2021-10-08 12:36 | NUR ---
TEAM CONFRENCE MEETING HELD THIS WEEK. PLAN FOR THE PT TO REMAIN ON THE UNIT AND CONTINUES THERAPIES AND D/C HOME WITH SPOUSE AND DTR, AND ARRANGE HH. PT AND SPOUSE IN AGREEMENT WITH THE PLAN. PT'S SPOUSE INFORMS OF REQUEST FOR HH WITH [facility]. PT'S SPOUSE ALSO INFORMS THAT THEIR DTR WILL REMAIN IN THE HOME TO ASSIST WITH THE PT UNTIL THEY ARE COMFORTABLE WITH HS CARE AND CAREGIVER IN THE HOME. PT PRGRESSING WELL TOWARDS GOALS. CM WILL REMAIN AVAILABLE TO ASSIST AND FOLLOW NEEDED.
[2021-10-08 12:40] VITALS: BP 129/44
--- NOTE | 2021-10-08 16:30 | NUR ---
PATIENT COMPLETED THERAPIES THIS SHIFT ORDERED. UP TO RECLINER. UP WITH GAIT BELT AND WALKER. PATIENT AMBULATING TO BATHROOM, VOIDING PER TOILET AND URINAL. PATIENT PASSING LOTS OF GAS, NO BM THIS SHIFT. PATIENT WAS GIVEN SCHED COLACE THIS AM, REFUSED MOM THAT THIS NURSE OFFERED. NO PRN MEDICATION REQUIRED THIS SHIFT.
[2021-10-08 19:56] VITALS: BP 113/56
--- NOTE | 2021-10-08 23:24 | NUR ---
ASSUMED CARE AT 1930. PATIENT AWAKENED FOR ASSESSMENT AND MEDS. TAKES PILLS WHOLE WITH WATER. PROPS URINAL IN PLACE, VOID TERRENCE URINE. GIVEN GABAPENTIN PER SCHEDULE, ALSO TRAMADOL AT HS. HOURLY ROUNDS CONTINUE. BED ALARM ON. CALL LITE IN REACH.
--- NOTE | 2021-10-09 06:10 | NUR ---
SLEPT MUCH OF THE NIGHT. VOIDED PER URINAL. NO C/O PAIN. HOURLY ROUNDS CONTINUE. BED ALARM ON. CALL LITE IN REACH.
[2021-10-09 07:30] VITALS: BP 115/49
--- NOTE | 2021-10-09 16:31 | NUR ---
PATIENT UP AND AMBULATING MORRELL WITH NURSING STAFF. UP WITH GAIT BELT AND WALKER. PATIENT VOIDING PER TOILET, INCONTINENT AT TIMES. PATIENT DID HAVE A LARGE BM AFTER SEVERAL DAYS, MEDICATION WAS OFFERED BUT PATIENT REFUSED; DID DRINK PRUNE JUICE. PATIENT COMPLAINS OF ANNIA LE PAIN WHEN LYING IN BED BUT STATES HE DOESNT HAVE ANY PAIN WHEN UP TO CHAIR. HERE THIS SHIFT. PATIENT EAGER TO DISCHARGE HOME TOMORROW.
[2021-10-09 19:32] VITALS: BP 136/57
--- NOTE | 2021-10-09 19:40 | NUR ---
RESTING QUIETLY IN BED. KEEPS URINAL BETWEEN LEGS AT ALL TIMES. CALL LIGHT WITHIN REACH.
--- NOTE | 2021-10-10 04:53 | NUR ---
RESTED QUIETLY. HOURLY ROUNDING IN PROGRESS.
[2021-10-10 09:00] VITALS: BP 115/43
[2021-10-10 11:33] VITALS: BP 115/43
[2021-10-10 12:41] VITALS: BP 129/44
--- NOTE | 2021-10-10 14:14 | NUR ---
PATIENT VERBALIZED UNDERSTANDING OF DISCHARGE INSTRUCTIONS. DENIES NEED FOR PAIN MEDICATION. UP WITH 1 ASSIST, GAIT BELT AND WALKER. LEFT VIA W/C TO FAMILY CAR WITH .
--- NOTE | 2021-10-10 14:23 | NUR ---
PLAN FOR THE PT TO D/C HOME TODAY WITH HH, AND SPOUSE ANS DTR'S SUPPORT. PT AND SPOUSE IN AGREEMENT WITH THE PLAN. HH ARRANGED WITH [facility] ESPINAL PER PT'S SPOUSE REQUEST. MARÍA TO CONTACT THE PT'S SPOUSE IN 24-48 HOURS TO ARRANGE A TIME TO VISIT. [facility] ESPINAL PHONE: [phone] FAX: [phone]
== END 2021-10-10 13:45 | disposition home health service (06) | DRG 948 ==
LOC: M.REH 17:48
PROVIDERS: Internal Medicine; ADMIT Physical Medicine & Rehabilitation; ATTEND Physical Medicine & Rehabilitation
PROC: 3E0333Z Introduction of Anti-inflammatory into Peripheral Vein, Percutaneous Approach (ICD-10-PCS; principal; 2021-09-26)
PROC: 0HBRXZZ Excision of Toe Nail, External Approach (ICD-10-PCS; 2021-10-05)
DX: R53.81 Other malaise (principal); I50.32 Chronic diastolic (congestive) heart failure; I48.20 Chronic atrial fibrillation, unspecified; N17.9 Acute kidney failure, unspecified; L03.116 Cellulitis of left lower limb; M54.10 Radiculopathy, site unspecified; N40.0 Benign prostatic hyperplasia without lower urinary tract symptoms; E03.9 Hypothyroidism, unspecified; M54.9 Dorsalgia, unspecified; G25.81 Restless legs syndrome; D72.829 Elevated white blood cell count, unspecified; Z20.822 Contact with and (suspected) exposure to COVID-19; I25.10 Atherosclerotic heart disease of native coronary artery without angina pectoris; M54.30 Sciatica, unspecified side; B35.1 Tinea unguium; M47.816 Spondylosis without myelopathy or radiculopathy, lumbar region; M48.061 Spinal stenosis, lumbar region without neurogenic claudication; I48.0 Paroxysmal atrial fibrillation; Z95.1 Presence of aortocoronary bypass graft